=== PATIENT | male | born 1960 | race Two or more races ===

== ENCOUNTER 2020-10-21 18:55 | Emergency (ER) | payer MEDICAID, OTHER ==
[~2020-10-21] VITALS: Ht 167.6 cm; Wt 77.1 kg
[2020-10-21 18:55] VITALS: BP 155/90
[2020-10-21] MEDS ORDERED: FLUORESCEIN SOD OPTH TEST STRIP RIGHTEYE ONE (19:30)
[2020-10-21] MEDS ORDERED: TETRACAINE HCL 0.5% OPTH(EYE) SOLN 4ML RIGHTEYE ONE (19:30)
[2020-10-21] MEDS ORDERED: ACETAMINOPHEN 325 MG TAB PO ONE (21:15)
== END 2020-10-21 21:25 | disposition home or self-care (01) ==
LOC: ER 18:55
DX: T15.82XA Foreign body in other and multiple parts of external eye, left eye, initial encounter (principal); W45.8XXA Other foreign body or object entering through skin, initial encounter; Y93.89 Activity, other specified; Y92.89 Other specified places as the place of occurrence of the external cause; Y99.8 Other external cause status